=== PATIENT | male | born 1975 | race Two or more races ===

== ENCOUNTER 2019-11-06 16:43 | Emergency (ER) | payer OTHER ==
[~2019-11-06] VITALS: Ht 172.7 cm; Wt 77.1 kg
[2019-11-06 16:44] VITALS: BP 150/80
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
[2019-11-06] MEDS ORDERED: ACETAMINOPHEN500 M3 ORAL (17:59)
[2019-11-06] MEDS ORDERED: IBUPROFEN600 M1 ORAL (17:59)
--- NOTE | 2019-11-06 18:05 | Diagnostic Imaging Report ---
EXAM: XR Right Shoulder Complete, 2 or More Views CLINICAL HISTORY: CP TECHNIQUE: Two or more views of the right shoulder. COMPARISON: No relevant prior studies available. FINDINGS: Bones/joints: Unremarkable. No acute fracture. No dislocation. Mild narrowing of the right acromioclavicular joint. Soft tissues: Calcification in the region of the supraspinatus tendon. IMPRESSION: 1. No acute osseous abnormality. 2. Findings which can be seen with rotator cuff calcific tendinopathy.
--- NOTE | 2019-11-06 18:11 | Diagnostic Imaging Report ---
EXAM: XR Chest, 1 View CLINICAL HISTORY: CP TECHNIQUE: Frontal view of the chest. COMPARISON: No relevant prior studies available. FINDINGS: Lungs: Mild prominent interstitial lung markings, presumably chronic. Sequela of old granulomatous disease in chest. No lung consolidation. Pleural space: Unremarkable. No pneumothorax. Heart: No cardiomegaly. Mediastinum: Unremarkable. Bones/joints: No acute osseous abnormality. Upper abdomen: Cholecystectomy clips. IMPRESSION: No acute cardiopulmonary abnormality.
[2019-11-06 18:28] VITALS: BP 149/79
== END 2019-11-06 18:30 | disposition home or self-care (01) ==
LOC: EDBD 16:43 → EMR 17:00
DX: S40.011A Contusion of right shoulder, initial encounter (principal); R07.89 Other chest pain; I10 Essential (primary) hypertension; E11.9 Type 2 diabetes mellitus without complications; V73.5XXA Driver of bus injured in collision with car, pick-up truck or van in traffic accident, initial encounter; Y92.411 Interstate highway as the place of occurrence of the external cause
CPT/HCPCS: 71045; 99284